=== PATIENT | male | born 2005 | race Caucasian/White ===

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

== ENCOUNTER 2023-03-06 09:33 | Emergency (ER) | payer BC ==
[2023-03-06 09:46] VITALS: BP 126/85; PULSE 68
== END 2023-03-06 10:57 | disposition home or self-care (01) ==
LOC: DL.ED 09:33
DX: J06.9 Acute upper respiratory infection, unspecified (principal); B97.89 Other viral agents as the cause of diseases classified elsewhere; Z86.16 Personal history of COVID-19; Z20.822 Contact with and (suspected) exposure to COVID-19
CPT/HCPCS: 87804; 99282; 99284; U0002

== ENCOUNTER 2025-02-18 07:10 | Emergency (ER) | payer BC, OTHER ==
[2025-02-18 07:26] VITALS: BP 135/77; PULSE 86
[2025-02-18] MEDS: Tetracaine HCl/PF 0.5% 4 ML Bottle EYEBOTH ONE (07:27)
[2025-02-18] MEDS: Fluorescein 1 MG Ophth Strip EYEBOTH ONE (07:29)
[2025-02-18] MEDS: Erythromycin Base 0.5% Ophth Oint 3.5 GM Tube EYEBOTH ONE (07:46)
== END 2025-02-18 07:50 | disposition home or self-care (01) ==
LOC: DL.ED 07:10
DX: S05.01XA Injury of conjunctiva and corneal abrasion without foreign body, right eye, initial encounter (principal); Z86.16 Personal history of COVID-19; W44.8XXA Other foreign body entering into or through a natural orifice, initial encounter; Y93.89 Activity, other specified
CPT/HCPCS: 99282; 99283; A9270; J3490